=== PATIENT | male | born 1970 ===

== ENCOUNTER 2023-06-21 13:49 | Observation (INO) | payer SELFPAY ==
[2023-06-21 14:14] LABS: #Basophils 0.1 thou/uL (0.0-0.2); #Eosinphils 0.3 thou/uL (0.0-0.7); #Neutrophils 10.1 thou/uL (1.40-6.50); %Basophils 0.5 % (0.0-1.0); %Eosinophils 2.4 % (0.0-10.0); %Lymphocytes 10.3 % (21.0-51.0); %Monocytes 14.4 % (0.0-10.0); Hematocrit 42.2 % (42.0-52.0); Hemoglobin 14.7 g/dL (14.0-18.0); Mean Corpuscular HGB CONC 34.8 g/dL (32.0-36.0); Mean Corpuscular Hemoglobin 31.1 pg (27.0-31.0); Mean Corpuscular Volume 89.2 fl (78.0-98.0); Platelet Count 297 10x3/uL (130-400); RBC Distribution Width 12.4 % (11.5-14.5); Red Blood Cell (RBC) Count 4.73 mill/uL (4.70-6.10)
[2023-06-21 14:43] LABS: ALT (SGPT) 13 U/L (8-55); AST (SGOT) 14 U/L (5-34); Alkaline Phosphatase 72 U/L (40-110); Anion Gap 16 mmol/L (10-20); BUN (Urea Nitrogen) 19 mg/dL (8.4-25.7); Bilirubin, Total 0.9 mg/dL (0.2-1.2); Calc. Creatinine Clearance 0 mL/min (70-130); Calcium 9.3 mg/dL (7.8-10.44); Carbon Dioxide 21 mmol/L (22-29); Chloride 100 mmol/L (98-107); Estimated GFR 40; Globulin 2.8 g/dL (2.4-3.5); Glucose 121 mg/dL (70-105); Lipase 4 U/L (8-78); Protein, Total 6.8 g/dL (6.0-8.3); Sodium 133 mmol/L (136-145)
[2023-06-21 14:45] LABS: Troponin I Less than 0.010 ng/mL (< 0.028)
[2023-06-21 14:49] LABS: Actual Bicarbonate (HCO3v) 23.4 mEq/L (22-28); Analyzer IN Cardio ER; Base Excess -1.9 mEq/L (-2.0 to +3.0); Calcium, Ionized (venous) 1.15 mmol/L (1.16-1.32); Chloride (VBG) 99 mmol/L (98-106); Hematocrit-VBG 46 % (42.0-52.0); Hemoglobin (Hb) 15.6 g/dL (13.1-17.2); Potassium (VBG) 3.78 mmol/L (3.70-5.30); Sodium 133.6 mmol/L (133-146); pH (venous) 7.367 (7.32-7.43)
[2023-06-21] MEDS ORDERED: HYDROcodone/Acetaminophen 5/325 mg Tablet PO PRN ×2 (18:15)
[2023-06-21] MEDS ORDERED: Acetaminophen 325 MG TAB PO PRN (18:15)
[2023-06-21] MEDS ORDERED: Ondansetron PF 4 MG/2 ML Vial IVP PRN (18:15)
[2023-06-21] MEDS ORDERED: Bisacodyl 5 MG TAB PO PRN (18:15)
[2023-06-21 18:18] VITALS: BMI 34.4
[2023-06-21] MEDS: Sodium Chloride 0.9% 1,000 ML IV SCH (18:23)
[2023-06-21] MEDS: Lactated Ringer's 1,000 ML IV SCH (20:04)
[2023-06-22] MEDS: Lactated Ringer's 1,000 ML IV SCH ×4 (01:21→15:11)
[2023-06-22] MEDS ORDERED: clonazePAM 1 MG TAB PO SCH ×2 (02:15→09:00)
[2023-06-22 07:58] LABS: #Eosinphils 0.3 thou/uL (0.0-0.7); #Monocytes 1.8 thou/uL (0.11-0.59); #Neutrophils 6.8 thou/uL (1.40-6.50); %Basophils 0.4 % (0.0-1.0); %Eosinophils 3.3 % (0.0-10.0); %Lymphocytes 13.2 % (21.0-51.0); %Monocytes 17.1 % (0.0-10.0); %Neutrophils 65.5 % (42.0-75.0); Hematocrit 37.4 % (42.0-52.0); Hemoglobin 12.8 g/dL (14.0-18.0); Mean Corpuscular HGB CONC 34.2 g/dL (32.0-36.0); Mean Corpuscular Hemoglobin 31.2 pg (27.0-31.0); Mean Corpuscular Volume 91.2 fl (78.0-98.0); Mean Platelet Volume 10.3 fL (7.4-10.4); Platelet Count 216 10x3/uL (130-400); RBC Distribution Width 12.2 % (11.5-14.5); White Blood Cell (WBC) Count 10.4 10x3/uL (4.8-10.8)
[2023-06-22] MEDS ORDERED: Carvedilol 25 MG TAB PO SCH (08:00)
[2023-06-22 08:31] LABS: Anion Gap 13 mmol/L (10-20); BUN (Urea Nitrogen) 10 mg/dL (8.4-25.7); Calc. Creatinine Clearance 151 mL/min (70-130); Calcium 8.8 mg/dL (7.8-10.44); Carbon Dioxide 24 mmol/L (22-29); Chloride 105 mmol/L (98-107); Estimated GFR 103; Glucose 91 mg/dL (70-105); Potassium 3.7 mmol/L (3.5-5.1); Sodium 138 mmol/L (136-145)
[2023-06-22] MEDS ORDERED: lamoTRIgine 100 MG TAB PO SCH (09:00)
[2023-06-22] MEDS ORDERED: Dextroamphetamine/Amphetamine [Adderall 20 Mg Tablet] 20 MG PO SCH (09:00)
[2023-06-22] MEDS ORDERED: tiZANidine HCl 4 MG TAB PO SCH (09:00)
[2023-06-22] MEDS: Sodium Chloride 0.9% 1,000 ML IV SCH (10:28)
[2023-06-22 17:01] VITALS: BP 132/62; TEMP 98
== END 2023-06-22 16:50 | disposition home or self-care (01) ==
LOC: ERS 13:49 → T4-B 16:29
PROVIDERS: ADMIT Internal Medicine; ATTEND Internal Medicine
DX: N17.9 Acute kidney failure, unspecified (principal); R10.9 Unspecified abdominal pain; G35 Multiple sclerosis; I50.9 Heart failure, unspecified; F90.9 Attention-deficit hyperactivity disorder, unspecified type; F31.9 Bipolar disorder, unspecified; Z90.49 Acquired absence of other specified parts of digestive tract; Z79.899 Other long term (current) drug therapy
CPT/HCPCS: 36415; 71045; 74022; 80048; 80053; 82805; 83605; 83690; 83735; 84484; 85025; 93005; 94760; 96360; 96361; G0378; J7050; J7120

== ENCOUNTER 2024-03-08 10:06 | Emergency (ER) | payer MEDICARE ==
[2024-03-08 10:35] LABS: #Basophils 0.06 10x3/uL (0.0-0.2); %Basophils 0.6 % (0.0-1.0); %Lymphocytes 16.1 % (21.0-51.0); %Monocytes 8.8 % (0.0-10.0); %Neutrophils 69.2 % (42.0-75.0); Hematocrit 48.5 % (42.0-52.0); Hemoglobin 17.5 g/dL (14.0-18.0); Mean Corpuscular HGB CONC 36.1 g/dL (32.0-36.0); Mean Corpuscular Hemoglobin 31.8 pg (27.0-31.0); Mean Corpuscular Volume 88.2 fL (78.0-98.0); Mean Platelet Volume 10.3 fL (7.4-10.4); Platelet Count 353 10x3/uL (130-400); RBC Distribution Width 12.5 % (11.5-14.5)
[2024-03-08 11:12] LABS: Troponin I Less than 0.010 ng/mL (< 0.028)
[2024-03-08 11:35] LABS: CK (CPK) 124 U/L (30-200); Lipase 11 U/L (8-78)
[2024-03-08 11:36] LABS: ALT (SGPT) 22 U/L (8-55); AST (SGOT) 18 U/L (5-34); Albumin 3.5 g/dL (3.5-5.0); Alkaline Phosphatase 87 U/L (40-110); Anion Gap 14 mmol/L (10-20); BUN (Urea Nitrogen) 13 mg/dL (8.4-25.7); Bilirubin, Total 0.8 mg/dL (0.2-1.2); Calc. Creatinine Clearance 0 mL/min (70-130); Calcium 9.6 mg/dL (7.8-10.44); Carbon Dioxide 20 mmol/L (22-29); Chloride 107 mmol/L (98-107); Estimated GFR 89; Globulin 3.4 g/dL (2.4-3.5); Glucose 113 mg/dL (70-105); Potassium 4.2 mmol/L (3.5-5.1); Protein, Total 6.9 g/dL (6.0-8.3); Sodium 137 mmol/L (136-145)
[2024-03-08] MEDS ORDERED: Dexamethasone 10 MG/ML VIAL ONE (11:46)
== END 2024-03-08 13:10 | disposition home or self-care (01) ==
LOC: ERS 10:06
DX: R06.02 Shortness of breath (principal); R06.2 Wheezing; I50.9 Heart failure, unspecified; Z87.891 Personal history of nicotine dependence; Z79.899 Other long term (current) drug therapy
CPT/HCPCS: 71045; 80053; 82550; 83690; 83880; 84484; 85025; 85379; 87040; 93005; J1100; 36415; 36416; 96372